=== PATIENT | male | born 1955 | race Caucasian/White ===

== ENCOUNTER → 2019-01-09 | Outpatient (CLI) | payer OTHER ==
[~2019-01-09] MED LIST: ALLOPURINOL300 MG PO; ASPI-COR81 M1 PO; DARVOCET N 1001 TAB PO; LISINOPRIL20 MG PO; SIMVASTATIN40 MG; SIMVASTATIN40 MG PO
== END | disposition home or self-care (01) ==
LOC: MRI 08:22
DX: M25.561 Pain in right knee (principal); Z98.890 Other specified postprocedural states